=== PATIENT | female | born 1980 | race Caucasian/White ===

== ENCOUNTER 2018-04-07 15:07 | Emergency (ER) | payer BC, SELFPAY ==
[2018-04-07 15:11] VITALS: BP 129/86; PULSE 94; RESP 14; TEMP 37.1; O2SAT 99; BMI 31.0
--- NOTE | 2018-04-07 16:53 | ED_ITS ---
HPI - Skin/Abscess/Foreign Bdy <Mari Whitley PA-C - Last Filed: 04/07/18 22:17> General Chief complaint: Skin/Abscess/Foreign Body Stated complaint: THINKS SPIDER BITE ON FACE RT SIDE SWELLING Time Seen by Provider: 04/07/18 16:41 Source: patient Mode of arrival: ambulatory Limitations: no limitations History of Present Illness HPI narrative: This 37-year-old female comes in to ED today due to concern for facial infection. She states that yesterday at home in [place], she awoke with an insect or spider on her arm that she brushed off. She thinks it bit her on the right cheek. She states that She noticed a little marlys or spot there yesterday but today this is enlarged and a little bit tender, closer to her eye so she thought she had better get it checked out. She states it is tender to touch, otherwise not painful. She has not had any difficulty swallowing, shortness of breath. She denies any new fever or other symptoms today. Related Data Home Medications Medication Instructions Recorded Confirmed albuterol sulfate [ProAir HFA] 1 puff INHALATION Q6H PRN 04/07/18 04/07/18 benzonatate 100 mg PO TID PRN 04/07/18 04/07/18 Previous Rx's Medication Instructions Recorded amoxicillin-pot clavulanate 1 tab PO Q12H #14 tab 04/07/18 Allergies Allergy/AdvReac Type Severity Reaction Status Date / Time No Known Drug Allergies Allergy Verified 04/07/18 15:14 Review of Systems <Mari Whitley PA-C - Last Filed: 04/07/18 22:17> Review of Systems ROS Unobtainable: All systems reviewed & are unremarkable except as noted in HPI and below Exam <Mari Whitley PA-C - Last Filed: 04/07/18 22:17> Narrative Exam Narrative: GENERAL APPEARANCE: Patient sitting comfortably, in no distress. EYES: PERRL, EOMI. ORAL CAVITY: Normal oropharynx. THROAT: Clear. NECK/THYROID: Neck supple, full range of motion, no cervical lymphadenopathy. LUNGS: Clear to auscultation bilaterally, no cough on exam. HEART: RRR without murmur, nl S1, S2, no S3 or S4. DERMATOLOGIC: On the right cheek there are 2 tiny erythematous pinhead macules with some surrounding pink erythema, not warm to touch, but mildly indurated and tender. This area measures about 2.5 cm in diameter, inferior to the orbit Initial Vital Signs Initial Vital Signs: Vital Signs Temperature 98.8 F 04/07/18 15:11 Pulse Rate 94 H 04/07/18 15:11 Respiratory Rate 14 04/07/18 15:11 Blood Pressure 129/86 04/07/18 15:11 Pulse Oximetry 99 04/07/18 15:11 <Dania Scott MD - Last Filed: 04/09/18 03:56> Initial Vital Signs Initial Vital Signs: Vital Signs Temperature 98.8 F 04/07/18 15:11 Pulse Rate 94 H 04/07/18 15:11 Respiratory Rate 14 04/07/18 15:11 Blood Pressure 129/86 04/07/18 15:11 Pulse Oximetry 99 04/07/18 15:11 Course <Mari Whitley PA-C - Last Filed: 04/07/18 22:17> Vital Signs - 8 hr 04/07/18 15:11 04/07/18 17:37 Temperature 98.8 F Pulse Rate 94 H 82 Respiratory Rate 14 18 Blood Pressure 129/86 123/80 Pulse Oximetry 99 98 <Dania Scott MD - Last Filed: 04/09/18 03:56> Vital Signs - 8 hr 04/07/18 15:11 04/07/18 17:37 Temperature 98.8 F Pulse Rate 94 H 82 Respiratory Rate 14 18 Blood Pressure 129/86 123/80 Pulse Oximetry 99 98 Discharge Plan Departure Patient Disposition: Home Clinical Impression: Insect bite Discharge Date/Time: 04/07/18 17:38 Interventions: ED Discharge Assessment Last Done: 04/07/18 17:37 Instructions: DI for Insect Bites and Stings Activity Restrictions/Additional Instructions: I agree with you it was likely that you were bitten by some type of insect or spider. Typically these will cause a histamine reaction, with swelling and redness, that peaks in 48-72 hours. Since Benadryl does not make you sleepy, please pick this up [id number] ( 25 mg diphenhydramine) and take every 4- 6 hours to help with swelling. You can use the ice pack if needed. If you are noticing rapidly spreading redness, more tenderness, or start to have any fever , please start the antibiotic that I have given you a prescription for. Please return as we talked about if you have any acutely worsening symptoms over the weekend, i.e. severe swelling in your face or eye area, difficulty swallowing or breathing, high fever. If you start the antibiotics, please follow-up with your usual clinic in about 3 days to the assess her progress Prescriptions: New amoxicillin-pot clavulanate 875-125 mg tablet 1 tab PO Q12H Qty: 14 RF: 0 No Action benzonatate 100 mg capsule 100 mg PO TID PRN (Reason: Cough) RF: 0 albuterol sulfate [ProAir HFA] 90 mcg/actuation HFA aerosol inhaler 1 puff Inhalation Q6H PRN (Reason: Wheezing) RF: 0
--- NOTE | 2018-04-07 16:55 | PC.NURSE ---
Pt states was in [place] yesterday, sleeping in the AM when a spider was felt on her arm. She brushed the spider away and later noticed 2 red gonzalez to her face. Right has 3cm redness and induration left is <1cm in diameter no induration noted.
[2018-04-07 17:37] VITALS: BP 123/80; PULSE 82; RESP 18; O2SAT 98
== END 2018-04-07 17:38 | disposition home or self-care (01) ==
PROVIDERS: Emergency Provider Internal Medicine
DX: R51 Headache (principal); W57.XXXA Bitten or stung by nonvenomous insect and other nonvenomous arthropods, initial encounter
CPT/HCPCS: 99282